=== PATIENT | female | born 1950 | race Caucasian/White ===

== ENCOUNTER 2021-06-19 10:03 | Inpatient (IN) | payer MEDICARE, OTHER ==
[~2021-06-19] VITALS: Ht 175.3 cm; Wt 86.5 kg
--- NOTE | 2021-06-19 10:41 | ED Cardiac General ---
History of Present Illness General Chief Complaint: Cough/Cold/Flu Symptoms Stated Complaint: COUGH/CONGESTION Nursing Triage Note: PT AMB TO [facility] 9 WITH DAUGHTER WITH COMPLAINT OF INTERMITTENT COUGH SINCE JANUARY. STATES SHE DOES HAVE NASAL DRAINAGE ALSO. Source: patient Exam Limitations: no limitations (WEN ROBLES MD) History of Present Illness Date Seen by Provider: Jun 19, 2021 Time Seen by Provider: 10:35 (WEN ROBLES MD) Initial Comments Mrs. Pradhan is a 70yo female with no significant cardiac PMH that presents to ED today due to Cough and congestion of a couple months. She states that in January she developed a deep productive cough and persisted 5-6 weeks until mid March. Since March the cough has been coming and going. Yesterday afternoon she states the cough became the worst it has been and her nose has been running profusely. It is worse at night. Today when she came into ED she had ECG that showed her to be in Afib. She denies any cardiac history. She does take an 81mg baby asprin. She states she has been feeling a fluttering sensation in her chest for a few months but confidently denies any crushing, heaviness, or pain sensation in her chest. Other than this she has had nausea with no vomiting and SOB at time. Has chronic issues with constipation. She has tried taking benadryl but this has not helped. Denies any fever. She only drinks 2-3 drinks/week. Does not smoke. (JENN SAWANT MED STUDENT) Allergies and Home Medications Allergies Coded Allergies: morphine (Verified Allergy, Unknown, 06/19/21) Patient Home Medication List Home Medication List Reviewed: Yes (WEN ROBLES MD) Aspirin (Aspirin) 81 Mg Tab.chew, 81 MG PO DAILY, (Reported) Entered as Reported by: CORDELIA ELLIS on 06/19/211444 Last Action: Held Calcium Carbonate/Vitamin D3 (Calcium + Vitamin D Tablet) 1 Each Tablet, 1 EACH PO BID, (Reported) Entered as Reported by: CORDELIA ELLIS on 06/19/211443 Last Action: Held Gabapentin (Gabapentin) 600 Mg Tablet, 600 MG PO HS, (Reported) Entered as Reported by: CORDELIA ELLIS on 06/19/211443 Last Action: Continued Pantoprazole Sodium (Pantoprazole Sodium) 40 Mg Tablet., 40 MG PO DAILY, (Reported) Entered as Reported by: CORDELIA ELLIS on 06/19/211443 Last Action: Continued Pramipexole Di-HCl (Pramipexole Dihydrochloride) 0.5 Mg Tablet, 0.5 MG PO HS, (Reported) Entered as Reported by: CORDELIA ELLIS on 06/19/211443 Last Action: Continued Review of Systems Review of Systems Constitutional: No chills, No fever EENTM: No Blurred Vision, No Double Vision Respiratory: Cough, Shortness of Air (worse than usual); Denies Wheezing Cardiovascular: Denies Chest Pain; Edema (ankles), Palpitations ("fluttering") Gastrointestinal: Denies Abdominal Pain; Constipated (chronic); Denies Diarrhea; Nausea; Denies Vomiting Genitourinary: Denies Hematuria; Other (no dysuria) Musculoskeletal: No joint pain, No joint swelling Skin: No lesions, No rash Psychiatric/Neurological: Denies Headache, Denies Numbness (JENN SAWANT MED STUDENT) Past Mcfiglu-Ccydfz-Qdexdx Hx Patient Social History Tobacco Use?: No Use of E-Cig and/or Vaping dev: No Substance use?: No Alcohol Use?: Yes Alcohol type: Beer, Hard Liquor Alcohol Frequency: Couple times a week Pt feels they are or have been: No (WEN ROBLES MD) Immunizations Up To Date Influenza Vaccine Up-to-Date: Yes; Up-to-Date First/Initial COVID19 Vaccinat: 2020 Second COVID19 Vaccination Baldo: 2020 (WEN ROBLES MD) Past Medical History Surgeries: Yes Appendectomy, Gallbladder, Joint Replacement (Right knee), Orthopedic (Back and neck surgery with hardware), Tonsillectomy Respiratory: Yes (Chronic cough) Neurological: Yes (Balance difficulty) Neuropathy (Peripheral neuropathy, not diabetic) : No Reproductive Disorders: No Genitourinary: No Gastrointestinal: Yes Gastroesophageal Reflux Musculoskeletal: Yes Arthritis, Fractures (Lumbar spine) HEENT: No Cancer: No Psychosocial: No Integumentary: No (WEN ROBLES MD) Physical Exam Vital Signs Vital Signs - First Documented 06/19/21 10:11 Pulse 151 Resp 26 B/P (MAP) 197/129 (151) Pulse Ox 96 O2 Delivery Room Air (JENN SAWANT MED STUDENT) Vital Signs Capillary Refill : Less Than 3 Seconds (WEN ROBLES MD) Height, Weight, BMI Height: '" Weight: lbs. oz. kg; 29.00 BMI Method: (WEN ROBLES MD) General Appearance: No Apparent Distress, WD/WN HEENT: PERRL/EOMI, Pharynx Normal, Moist Mucous Membranes Respiratory: Chest Non Tender, Lungs Clear, No Respiratory Distress, Decreased Breath Sounds (mildly decreased, no crackles noted) Cardiovascular: No Murmur, Normal Peripheral Pulses, Other (irregular rythym) Gastrointestinal: Normal Bowel Sounds, Non Tender, Soft Extremity: Non Tender, No Calf Tenderness, Pedal Edema (mild) Neurologic/Psychiatric: Alert, Oriented x3, No Motor/Sensory Deficits Skin: Normal Color, Warm/Dry (JENN SAWANT [employer] STUDENT) Progress/Results/Core Measures Results/Orders Lab Results Laboratory Tests Test 06/19/21 10:33 Range/Units White Blood Count 9.1 4.3-11.0 10^3/uL Red Blood Count 4.53 3.80-5.11 10^6/uL Hemoglobin 13.9 11.5-16.0 g/dL Hematocrit 43 35-52 % Mean Corpuscular Volume 94 80-99 fL Mean Corpuscular Hemoglobin 31 25-34 pg Mean Corpuscular Hemoglobin Concent 33 32-36 g/dL Red Cell Distribution Width 13.2 10.0-14.5 % Platelet Count 244 130-400 10^3/uL Mean Platelet Volume 9.6 9.0-12.2 fL Immature Granulocyte % (Auto) 0 % Neutrophils (%) (Auto) 81 H 42-75 % Lymphocytes (%) (Auto) 8 L 12-44 % Monocytes (%) (Auto) 6 0-12 % Eosinophils (%) (Auto) 5 0-10 % Basophils (%) (Auto) 0 0-10 % Neutrophils # (Auto) 7.4 1.8-7.8 10^3/uL Lymphocytes # (Auto) 0.7 L 1.0-4.0 10^3/uL Monocytes # (Auto) 0.5 0.0-1.0 10^3/uL Eosinophils # (Auto) 0.4 H 0.0-0.3 10^3/uL Basophils # (Auto) 0.0 0.0-0.1 10^3/uL Immature Granulocyte # (Auto) 0.0 0.0-0.1 10^3/uL Sodium Level 141 135-145 MMOL/L Potassium Level 4.2 3.6-5.0 MMOL/L Chloride Level 105 98-107 MMOL/L Carbon Dioxide Level 18 L 21-32 MMOL/L Anion Gap 18 H 5-14 MMOL/L Glucose Level 104 70-105 MG/DL Calcium Level 9.6 8.5-10.1 MG/DL Corrected Calcium 9.4 8.5-10.1 MG/DL Total Bilirubin 0.7 0.1-1.0 MG/DL Alkaline Phosphatase 127 40-136 U/L Total Protein 7.6 6.4-8.2 GM/DL Albumin 4.2 3.2-4.5 GM/DL (JENN SAWANT MED STUDENT) Medications Given in ED Current Medications Medications Dose Ordered Sig/Marguerite Route Start Time Stop Time Status Last Admin Dose Admin Diltiazem HCl 10 mg ONCE ONCE IVP 06/19/21 10:45 06/19/21 10:46 DC 06/19/21 10:42 10 MG (JENN SAWANT MED STUDENT) Vital Signs/I&O 06/19/21 10:11 Pulse 151 Resp 26 B/P (MAP) 197/129 (151) Pulse Ox 96 O2 Delivery Room Air (JENN SAWANT MED STUDENT) Blood Pressure Mean: 151 Progress Progress Note : Progress Note Patient was seen and evaluated by me personally along with MS 4. She was found to have atrial fibrillation with RVR. This is a new diagnosis for her. She has been experiencing palpitations for at least the past 2 months. She also describes a cough productive of clear or sometimes white foamy sputum intermittently for about 5 months. She does not necessarily correlate the palpitations with the cough. It is possible that her atrial fibrillation has been causing some degree of heart failure resulting in cough. Patient also reported allergy symptoms that were relatively intense over the past couple of days including sneezing and runny nose. She has had no fever or chills. She was started on a Cardizem bolus and drip for control of atrial fibrillation. She is maintaining a heart rate in the 80s well controlled on the drip during my exam. We did have a conversation about her alcohol consumption. She reports drinking 2-3 beers or a couple of mixed drinks 3 to 4 days/week. She reports never experiencing withdrawal symptoms even when she has abstained for several days, and she is not concerned about withdrawal. She appears to have multiple issues that could be related to her alcohol consumption including frequent falls, neuropathy, GERD, new atrial fibrillation and chronic cough. Patient is agreeable to admission. We discussed CODE STATUS. She is agreeable to chest compressions and defibrillation but does not want to be intubated under any circ umstance. Patient has also been suffering from significant insomnia which she attributes to the cough. (WEN ROBLES MD) Initial ECG Impression Date: Jun 19, 2021 Initial ECG Impression Time: 10:23 Initial ECG Rate: 139 Initial ECG Rhythm: A Fib/Flutter Initial ECG Impression: Atrial Fibrillation w/RVR Comment Atrial fibrillation with RVR. Subtle ST depression. No ST elevation. No abnormal intervals or axis deviation. (WEN ROBLES MD) Diagnostic Imaging Diagonstic Imaging: Xray Plain Films/CT/US/NM/MRI: chest Comments Chest x-ray viewed by me and report reviewed. See report below: NAME: JENNIFER PRADHAN MED REC#: [id number] PT STATUS: REG ER : 1950 PHYSICIAN: WEN ROBLES MD ADMIT DATE: 06/19/21/ER Draft Date of Exam:06/19/21 CHEST 1 VIEW, AP/PA ONLY INDICATION: Cough and dyspnea. COMPARISON: None. DISCUSSION: Single portable upright view of the chest was obtained. Elevated right hemidiaphragm. Cardiomegaly is noted. No failure. No consolidation, pleural fluid, or pneumothorax. No osseous abnormality. IMPRESSION: Cardiomegaly without failure. Dictated on workstation # [id number] Dict: 06/19/21 1149 Trans: 06/19/21 1154 [id number] Interpreted by: REAL LOPEZ MD (WEN ROBLES MD) Departure Communication (Admissions) Time/Spoke to Admitting Phy: 11:53 Dr. Vora Time/Spoke to Consulting Phy: 11:50 Dr. Guerra (WEN ROBLES MD) Impression Primary Impression: Atrial fibrillation with RVR Additional Impression: Chronic cough Disposition: ADMITTED INPATIENT Condition: Stable Admissions Decision to Admit Reason: Admit from ER (General) Decision to Admit/Date: Jun 19, 2021 Time/Decision to Admit Time: 11:50 (WEN ROBLES MD) Departure-Patient Inst. Referrals: NO,LOCAL PHYSICIAN (PCP/Family) Primary Care Physician Medical Student Attestation and Attending Note: I have personally interviewed and examined this patient along with Jenn Sawant, MS 4. I have reviewed student documentation including history, physical, and assessments. I agree with the documentation except where otherwise noted. Exam: General: Alert, oriented, anxious but not in distress, well developed HEENT: Normocephalic and atraumatic, no JVD Heart: Irregularly irregular without murmur Lungs: Subtle scattered crackles bilaterally with normal effort Abdomen: Soft, nontender, nondistended, normal bowel sounds Extremities: No significant edema, arthritic disfigurement of the fingers and toes Neuropsych: Alert, oriented, no focal deficits Skin: Warm and dry without rashes (WEN ROBLES MD) WEN ROBLES MD Jun 19, 2021 10:41 JENN SAWANT MED STUDENT Jun 19, 2021 10:59
[2021-06-19 10:43] LABS: BASOPHILS % (AUTO) 0 % (0-10); EOSINOPHILS # (AUTO) 0.4 10^3/uL (0.0-0.3); EOSINOPHILS % (AUTO) 5 % (0-10); HEMATOCRIT 43 % (35-52); HEMOGLOBIN 13.9 g/dL (11.5-16.0); LYMPHOCYTES # (AUTO) 0.7 10^3/uL (1.0-4.0); LYMPHOCYTES % (AUTO) 8 % (12-44); MEAN CORPUSCULAR HEMOGLOBIN 31 pg (25-34); MEAN CORPUSCULAR HGB CONC 33 g/dL (32-36); MEAN CORPUSCULAR VOLUME 94 fL (80-99); MEAN PLATELET VOLUME 9.6 fL (9.0-12.2); MONOCYTES # (AUTO) 0.5 10^3/uL (0.0-1.0); MONOCYTES % (AUTO) 6 % (0-12); NEUTROPHILS # (AUTO) 7.4 10^3/uL (1.8-7.8); NEUTROPHILS % (AUTO) 81 % (42-75); PLATELET COUNT 244 10^3/uL (130-400); WHITE BLOOD COUNT 9.1 10^3/uL (4.3-11.0)
[2021-06-19] MEDS ORDERED: dilTIAZem DRIP PRE-MIX 125 ML IV SCH (10:45)
[2021-06-19 10:53] LABS: ALBUMIN 4.2 GM/DL (3.2-4.5); POTASSIUM 4.2 MMOL/L (3.6-5.0)
[2021-06-19 10:54] LABS: CALCIUM 9.6 MG/DL (8.5-10.1)
[2021-06-19 10:56] LABS: TOTAL PROTEIN 7.6 GM/DL (6.4-8.2)
[2021-06-19 10:57] LABS: BILIRUBIN,TOTAL 0.7 MG/DL (0.1-1.0)
[2021-06-19 10:59] LABS: CREATININE SERUM 0.78 MG/DL (0.60-1.30)
[2021-06-19 11:07] LABS: EOSINOPHILS % (MANUAL) 2 %; LYMPHOCYTES % (MANUAL) 8 %; MONOCYTES % (MANUAL) 5 %; NEUTROPHILS % (MANUAL) 85 %; RBC MORPH NORMAL
[2021-06-19 11:23] LABS: TSH (THYROID ANALYZER) 1.54 UIU/ML (0.35-4.94)
--- NOTE | 2021-06-19 11:54 | Diagnostic Imaging Report ---
INDICATION: Cough and dyspnea. COMPARISON: None. DISCUSSION: Single portable upright view of the chest was obtained. Elevated right hemidiaphragm. Cardiomegaly is noted. No failure. No consolidation, pleural fluid, or pneumothorax. No osseous abnormality. IMPRESSION: Cardiomegaly without failure. Dictated by: Dictated on workstation # [id number]
[2021-06-19] MEDS ORDERED: APIXABAN 5 MG (ELIQUIS) TABLET PO ONE (12:00)
[2021-06-19] MEDS ORDERED: HYDROmorphone 2 MG/ML VIAL (DILAUDID) IV ONE (13:00)
--- NOTE | 2021-06-19 13:26 | Tele-ICU Consult ---
History of Present Illness History of Present Illness Date Seen by Provider: Jun 19, 2021 Time Seen by Provider: 13:20 History of Present Illness 70 yo F came to ED with fluttering in chest, 5 Hx of cough. Found to be in a fib with RVR, started on IV Cardizem No c/o of SOB/CP, No previous cardiac PMH CXR shows increased HS but no CHF, TSH ok, BNP 117 Allergies and Home Medications Allergies Coded Allergies: morphine (Verified Allergy, Unknown, 06/19/21) Past Medical/Social/Family Hx Patient Social History Tobacco Use?: No Use of E-Cig and/or Vaping dev: No Substance use?: No Alcohol Use?: Yes Alcohol Frequency: Couple times a week Pt stated abuse/neglect: No Immunizations Up To Date Influenza Vaccine Up-to-Date: Yes; Up-to-Date First/Initial COVID19 Vaccinat: 2020 Second COVID19 Vaccination Baldo: 2020 Current Status Advance Directives: No Primary Language: [place] Citizen Preferred Spoken Language: [place] Citizen Focused Exam Height, Weight, BMI Height: '" Weight: lbs. oz. kg; 29.00 BMI Method: Exam Exam Patient acknowledged, consented, and participated in this virtual visit which was conducted using real time audio/video Vital Signs Date Time Temp Pulse Resp B/P (MAP) Pulse Ox O2 Delivery O2 Flow Rate FiO2 06/19/21 10:11 151 26 197/129 (151) 96 Room Air Height & Weight Height: '" Weight: lbs. oz. kg; 29.00 BMI Method: General Appearance: No Apparent Distress, WD/WN HEENT: PERRL/EOMI, Pharynx Normal, Moist Mucous Membranes Respiratory: Chest Non Tender, Lungs Clear, No Respiratory Distress, Decreased Breath Sounds (mildly decreased, no crackles noted) Cardiovascular: No Murmur, Normal Peripheral Pulses, Other (irregular rythym) Capillary Refill: Less Than 3 Seconds Extremity: Non Tender, No Calf Tenderness, Pedal Edema (mild) Neurologic/Psychiatric: Alert, Oriented x3, No Motor/Sensory Deficits Skin: Normal Color, Warm/Dry Results Lab Laboratory Tests 06/19/21 10:33 Assessment/Plan Assessment/Plan A fib with RVR, will continue with IV Cardizem until rate controlled, will get echocardiogram, has cardiomegaly on CXR Critical Care: Critically Ill Patient TAMANNA ERWIN MD Jun 19, 2021 13:26
[2021-06-19 13:35] VITALS: BP 141/90
[2021-06-19] MEDS ORDERED: CATHETER FLUSH 10 ML SYR IVP PRN (14:00)
[2021-06-19] MEDS ORDERED: PANT40TA52 PO (14:44)
[2021-06-19] MEDS ORDERED: PRAM0.5T9 PO (14:44)
[2021-06-19] MEDS ORDERED: CALC-140 PO (14:44)
[2021-06-19] MEDS ORDERED: GBPN600T PO (14:44)
[2021-06-19] MEDS ORDERED: ASPI-999 PO (14:45)
[2021-06-19] MEDS ORDERED: meTOproloL SUCCINATE 50 MG (TOPROL XL) TAB PO ONE (15:15)
--- NOTE | 2021-06-19 16:07 | Consultation-Cardiology ---
HPI-Cardiology Cardiology Consultation: Date of Consultation 06/19/21 Date of Admission 06/19/21 Attending Physician Juli Vora MD Admitting Physician No,Local Physician Consulting Physician REAL LANZA JR, MD HPI: Time Seen by a Provider: 16:02 Chief Complaint: Reason for consultation: Atrial fibrillation. I had the pleasure of seeing Adiel in the intensive care unit at [facility] in [place], [place] this afternoon. She has no significant cardiac risk factors. She has had multiple cervical spine surgeries in the past and because of some of the manipulation done in her neck, she tells me that she frequently has problems with choking when she eats or drinks. Then for about the past 5 months she has been having a dry cough. Mainly this would bother her at night. Every time she would lay down, she would cough. She got to the point that she was sleeping in a chair because this was the only way she could get comfortable without coughing. At times she would raise both whitish and pinkish sputum. She did not seek medical attention. Sometimes this would make her feel short of breath. She denies any chest discomfort. Then yesterday she was doing some things around the house and suddenly developed rhinorrhea. This eventually resolved. Then finally this morning she decided to come to the hospital for further evaluation. In the emergency room she was found to be in atrial fibrillation with a rapid ventricular rate and was started on intravenous diltiazem and her heart rates improved. She was then admitted to the intensive care unit and a cardiology consultation was requested. She states that she has had some palpitations but not all that often. She denies any chest discomfort. She has had minimal dyspnea on exertion. She denies lightheadedness, syncope, or ankle edema. Certain portions of this document may have been dictated utilizing voice recognition technology. Inherent to this technology, typographical and grammatical errors may exist. As much as I am diligent to identify and correct these mistakes, some errors may remain in the document. Review of Systems-Cardiology Review of Systems Other comments Review of 10 organ systems is as per the history of present illness, otherwise negative. [facility]R-Flwtis-Zajxgt Hx Patient Social History Have you traveled recently?: No Alcohol Use?: Yes Pt feels they are or have been: No Past Medical History PMH As described under Assessment. Family Medical History Family Medical History: She is adopted and does not know her family history. Allergies and Home Medications Allergies Coded Allergies: morphine (Verified Allergy, Unknown, 06/19/21) Patient Home Medication List Home Medication List Reviewed: Yes Aspirin (Aspirin) 81 Mg Tab.chew, 81 MG PO DAILY, (Reported) Entered as Reported by: CORDELIA ELLIS on 06/19/211444 Last Action: Reviewed Calcium Carbonate/Vitamin D3 (Calcium + Vitamin D Tablet) 1 Each Tablet, 1 EACH PO BID, (Reported) Entered as Reported by: CORDELIA ELLIS on 06/19/211443 Last Action: Reviewed Gabapentin (Gabapentin) 600 Mg Tablet, 600 MG PO HS, (Reported) Entered as Reported by: CORDELIA ELLIS on 06/19/211443 Last Action: Reviewed Pantoprazole Sodium (Pantoprazole Sodium) 40 Mg Tablet.dr, 40 MG PO DAILY, (Reported) Entered as Reported by: CORDELIA ELLIS on 06/19/211443 Last Action: Reviewed Pramipexole Di-HCl (Pramipexole Dihydrochloride) 0.5 Mg Tablet, 0.5 MG PO HS, (Reported) Entered as Reported by: CORDELIA ELLIS on 06/19/211443 Last Action: Reviewed Exam Vital Signs Vital Signs Date Time Temp Pulse Resp B/P (MAP) Pulse Ox O2 Delivery O2 Flow Rate FiO2 06/19/21 15:00 85 20 116/78 93 Room Air Physical Exam General: Alert. No acute distress. Well nourished and appears stated age. Eye: Extraocular movements are intact. Conjunctivae are clear. There are no xanthelasma. HENT: Normocephalic. Atraumatic. Carotid pulsations 2/2 without bruits. Neck: Jugular venous pressure does not appear elevated. No thyromegaly appreciated. Respiratory: Lungs are clear to auscultation. Respirations are non-labored. Breath sounds are equal. Symmetrical chest wall expansion. Cardiovascular: Normal rate. Irregular rhythm. No murmur. No gallop. Point of maximal impulse is not appear displaced. Good pulses equal in all extremities. No edema. Gastrointestinal: Soft. Normal bowel sounds. Skin: Skin turgor is normal. There is no pallor. Musculoskeletal: No kyphosis or scoliosis appreciated. Neurologic: Alert and oriented to person, place, time. Cranial nerves 3-12 appe ar grossly intact. The patient has good motor tone strength in the upper and lower extremities bilaterally. Psychiatric: Cooperative. Appropriate mood but anxious. Labs Laboratory Tests Test 06/19/21 10:33 06/19/21 10:43 Range/Units White Blood Count 9.1 4.3-11.0 10^3/uL Red Blood Count 4.53 3.80-5.11 10^6/uL Hemoglobin 13.9 11.5-16.0 g/dL Hematocrit 43 35-52 % Mean Corpuscular Volume 94 80-99 fL Mean Corpuscular Hemoglobin 31 25-34 pg Mean Corpuscular Hemoglobin Concent 33 32-36 g/dL Red Cell Distribution Width 13.2 10.0-14.5 % Platelet Count 244 130-400 10^3/uL Mean Platelet Volume 9.6 9.0-12.2 fL Immature Granulocyte % (Auto) 0 % Neutrophils (%) (Auto) 81 H 42-75 % Lymphocytes (%) (Auto) 8 L 12-44 % Monocytes (%) (Auto) 6 0-12 % Eosinophils (%) (Auto) 5 0-10 % Basophils (%) (Auto) 0 0-10 % Neutrophils # (Auto) 7.4 1.8-7.8 10^3/uL Lymphocytes # (Auto) 0.7 L 1.0-4.0 10^3/uL Monocytes # (Auto) 0.5 0.0-1.0 10^3/uL Eosinophils # (Auto) 0.4 H 0.0-0.3 10^3/uL Basophils # (Auto) 0.0 0.0-0.1 10^3/uL Immature Granulocyte # (Auto) 0.0 0.0-0.1 10^3/uL Neutrophils % (Manual) 85 % Lymphocytes % (Manual) 8 % Monocytes % (Manual) 5 % Eosinophils % (Manual) 2 % Blood Morphology Comment NORMAL Sodium Level 141 135-145 MMOL/L Potassium Level 4.2 3.6-5.0 MMOL/L Chloride Level 105 98-107 MMOL/L Carbon Dioxide Level 18 L 21-32 MMOL/L Anion Gap 18 H 5-14 MMOL/L Blood Urea Nitrogen 11 7-18 MG/DL Creatinine 0.78 0.60-1.30 MG/DL Estimat Glomerular Filtration Rate 81 BUN/Creatinine Ratio 14 Glucose Level 104 70-105 MG/DL Calcium Level 9.6 8.5-10.1 MG/DL Corrected Calcium 9.4 8.5-10.1 MG/DL Magnesium Level 2.0 1.6-2.4 MG/DL Total Bilirubin 0.7 0.1-1.0 MG/DL Aspartate Amino Transf (AST/SGOT) 30 5-34 U/L Alanine Aminotransferase (ALT/SGPT) 25 0-55 U/L Alkaline Phosphatase 127 40-136 U/L B-Type Natriuretic Peptide 117.1 H <100.0 PG/ML Total Protein 7.6 6.4-8.2 GM/DL Albumin 4.2 3.2-4.5 GM/DL TSH Elizabeth Testing 1.54 0.35-4.94 UIU/ML Serum Alcohol < 10 <10 MG/DL ECG Impression ECG Comment Electrocardiogram from the emergency room at 1023 this morning shows atrial fibrillation with a ventricular rate of 139 bpm with low voltage in the precordial leads, nonspecific intraventricular conduction delay, poor R wave progression and anterolateral ST depression. Diagnosis/Problems Diagnosis/Problems (1) Paroxysmal atrial fibrillation Assessment & Plan: She appears to have atrial fibrillation of unknown duration. Her heart rates have improved with intravenous diltiazem. I have started her on metoprolol succinate as well as apixaban. Her [id number] score is at least 2 for female sex and age over 65 but also possibly 3 for possibly newly diagnosed hypertension. We will attempt to wean off the diltiazem overnight. She will ultimately need an echocardiogram. If her heart rates improve overnight and she is ready for discharge tomorrow, we could consider an outpatient echocardiogram since tomorrow is Monday. (2) Abnormal electrocardiogram Assessment & Plan: Her electrocardiogram shows poor R wave progression and anterolateral ST depression. She will ultimately need an ischemic evaluation but this could also be arranged as an outpatient. (3) Hypertensive urgency Assessment & Plan: Her blood pressure was markedly elevated in the emergency room upon presentation. This has improved with the intravenous diltiazem. I would question whether or not she might have undiagnosed hypertension. We will be getting her on beta-parth for the atrial fibrillation which should help keep her blood pressure under control. (4) Chronic cough Status: Acute Assessment & Plan: Exact etiology unclear. Her chest x-ray did not show any overt pulmonary edema. Her BNP level was marginally elevated but this is in the setting of atrial fibrillation with a rapid ventricular rate that could cause the BNP to become elevated. I suspect she may be having some chronic, low-grade aspiration events. This may need to be evaluated with a swallow study. REAL LANZA JR, MD Jun 19, 2021 16:07
[2021-06-19] MEDS: BENZONATATE 100 MG (TESSALON) CAPSULE PO PRN (18:19)
[2021-06-19] MEDS: APIXABAN 5 MG (ELIQUIS) TABLET PO SCH (20:31)
[2021-06-19] MEDS ORDERED: PRAMIPEXOLE 0.5 MG TAB (MIRAPEX) PO SCH (21:00)
[2021-06-19] MEDS ORDERED: GABAPENTIN 600 MG (NEURONTIN) TAB PO SCH (21:00)
[2021-06-19] MEDS ORDERED: MELATONIN 3 MG TABLET PO SCH (22:25)
[2021-06-20] MEDS: BENZONATATE 100 MG (TESSALON) CAPSULE PO PRN (04:23)
[2021-06-20 04:42] LABS: BASOPHILS % (AUTO) 1 % (0-10); EOSINOPHILS # (AUTO) 0.1 10^3/uL (0.0-0.3); EOSINOPHILS % (AUTO) 1 % (0-10); HEMATOCRIT 39 % (35-52); HEMOGLOBIN 12.6 g/dL (11.5-16.0); LYMPHOCYTES # (AUTO) 0.8 10^3/uL (1.0-4.0); LYMPHOCYTES % (AUTO) 13 % (12-44); MEAN CORPUSCULAR HEMOGLOBIN 31 pg (25-34); MEAN CORPUSCULAR HGB CONC 32 g/dL (32-36); MEAN CORPUSCULAR VOLUME 96 fL (80-99); MEAN PLATELET VOLUME 9.6 fL (9.0-12.2); MONOCYTES # (AUTO) 0.6 10^3/uL (0.0-1.0); MONOCYTES % (AUTO) 10 % (0-12); NEUTROPHILS # (AUTO) 4.2 10^3/uL (1.8-7.8); NEUTROPHILS % (AUTO) 75 % (42-75); PLATELET COUNT 183 10^3/uL (130-400); WHITE BLOOD COUNT 5.6 10^3/uL (4.3-11.0)
[2021-06-20 04:57] LABS: ALBUMIN 3.6 GM/DL (3.2-4.5); POTASSIUM 4.2 MMOL/L (3.6-5.0)
[2021-06-20 04:58] LABS: CALCIUM 8.7 MG/DL (8.5-10.1)
[2021-06-20 04:59] LABS: TOTAL PROTEIN 6.4 GM/DL (6.4-8.2)
[2021-06-20 05:01] LABS: BILIRUBIN,TOTAL 0.6 MG/DL (0.1-1.0)
[2021-06-20 05:03] LABS: CREATININE SERUM 0.88 MG/DL (0.60-1.30); PHOSPHORUS 3.3 MG/DL (2.3-4.7)
[2021-06-20 05:06] LABS: MAGNESIUM 1.9 MG/DL (1.6-2.4)
[2021-06-20] MEDS ORDERED: POTASSIUM CL 10MEQ/50ML IVPB 50 ML IV SCH (06:00)
[2021-06-20] MEDS ORDERED: MAGNESIUM 1 GM/100 ML IVPB 100 ML IV SCH (06:00)
[2021-06-20] MEDS ORDERED: KCL 20 MEQ TAB (K-DUR) PO SCH (06:00)
[2021-06-20] MEDS ORDERED: PANTOPRAZOLE 40 MG (PROTONIX) TAB PO SCH (07:00)
[2021-06-20] MEDS: APIXABAN 5 MG (ELIQUIS) TABLET PO SCH (08:41)
[2021-06-20] MEDS ORDERED: meTOproloL SUCCINATE 50 MG (TOPROL XL) TAB PO SCH (09:00)
--- NOTE | 2021-06-20 10:19 | Cardiology Progress Note ---
Progress Note-Cardiology Events since last exam Date Seen by Provider: Jun 20, 2021 Time Seen by Provider: 10:16 Events since last exam I am following her due to atrial fibrillation. Overnight, her diltiazem infu edgar was discontinued and her heart rates remained below 100 bpm on oral metoprolol. She took a Tessalon Perle and her cough has almost completely resolved. She denies chest discomfort, dyspnea, palpitations, syncope, or ankle edema. She wants to know if she can go home. Certain portions of this document may have been dictated utilizing voice recognition technology. Inherent to this technology, typographical and grammatical errors may exist. As much as I am diligent to identify and correct these mistakes, some errors may remain in the document. Vitals Last set of Vitals Signs Vital Signs 06/20/21 06/20/21 07:43 09:00 Temp 36.6 Pulse 73 Resp 16 B/P (MAP) 95/66 Pulse Ox 94 O2 Delivery Room Air Labs Labs Laboratory Tests 06/19/21 10:33 06/20/21 04:14 Exam Vital Signs Vital Signs Date Time Temp Pulse Resp B/P (MAP) Pulse Ox O2 Delivery O2 Flow Rate FiO2 06/20/21 09:00 73 16 95/66 94 Room Air 06/20/21 07:43 36.6 Physical Exam General: Alert. No acute distress. Eye: No xanthelasma. HENT: Normocephalic. Neck: Jugular venous pressure does not appear elevated. Respiratory: Lungs are clear to auscultation. Respirations are non-labored. Breath sounds are equal. Symmetrical chest wall expansion. Cardiovascular: Normal rate. Irregular rhythm. No murmur. No gallop. No edema. Gastrointestinal: Soft. Normal bowel sounds. Skin: Warm. Dry. Neurologic: Alert and oriented to person, place, time. Cranial nerves 3-11 grossly intact. Psychiatric: Cooperative. Appropriate mood & affect. ELECTROCARDIOGRAM atrial fibrillation with a ventricular rate of 83 bpm with poor R wave progression. Labs Laboratory Tests Test 06/19/21 10:33 06/19/21 10:43 06/20/21 04:14 Range/Units White Blood Count 9.1 5.6 4.3-11.0 10^3/uL Red Blood Count 4.53 4.07 3.80-5.11 10^6/uL Hemoglobin 13.9 12.6 11.5-16.0 g/dL Hematocrit 43 39 35-52 % Mean Corpuscular Volume 94 96 80-99 fL Mean Corpuscular Hemoglobin 31 31 25-34 pg Mean Corpuscular Hemoglobin Concent 33 32 32-36 g/dL Red Cell Distribution Width 13.2 13.4 10.0-14.5 % Platelet Count 244 183 130-400 10^3/uL Mean Platelet Volume 9.6 9.6 9.0-12.2 fL Immature Granulocyte % (Auto) 0 0 % Neutrophils (%) (Auto) 81 H 75 42-75 % Lymphocytes (%) (Auto) 8 L 13 12-44 % Monocytes (%) (Auto) 6 10 0-12 % Eosinophils (%) (Auto) 5 1 0-10 % Basophils (%) (Auto) 0 1 0-10 % Neutrophils # (Auto) 7.4 4.2 1.8-7.8 10^3/uL Lymphocytes # (Auto) 0.7 L 0.8 L 1.0-4.0 10^3/uL Monocytes # (Auto) 0.5 0.6 0.0-1.0 10^3/uL Eosinophils # (Auto) 0.4 H 0.1 0.0-0.3 10^3/uL Basophils # (Auto) 0.0 0.0 0.0-0.1 10^3/uL Immature Granulocyte # (Auto) 0.0 0.0 0.0-0.1 10^3/uL Neutrophils % (Manual) 85 % Lymphocytes % (Manual) 8 % Monocytes % (Manual) 5 % Eosinophils % (Manual) 2 % Blood Morphology Comment NORMAL Sodium Level 141 139 135-145 MMOL/L Potassium Level 4.2 4.2 3.6-5.0 MMOL/L Chloride Level 105 105 98-107 MMOL/L Carbon Dioxide Level 18 L 22 21-32 MMOL/L Anion Gap 18 H 12 5-14 MMOL/L Blood Urea Nitrogen 11 12 7-18 MG/DL Creatinine 0.78 0.88 0.60-1.30 MG/DL Estimat Glomerular Filtration Rate 81 70 BUN/Creatinine Ratio 14 14 Glucose Level 104 105 70-105 MG/DL Calcium Level 9.6 8.7 8.5-10.1 MG/DL Corrected Calcium 9.4 9.0 8.5-10.1 MG/DL Magnesium Level 2.0 1.9 1.6-2.4 MG/DL Total Bilirubin 0.7 0.6 0.1-1.0 MG/DL Aspartate Amino Transf (AST/SGOT) 30 23 5-34 U/L Alanine Aminotransferase (ALT/SGPT) 25 19 0-55 U/L Alkaline Phosphatase 127 111 40-136 U/L B-Type Natriuretic Peptide 117.1 H <100.0 PG/ML Total Protein 7.6 6.4 6.4-8.2 GM/DL Albumin 4.2 3.6 3.2-4.5 GM/DL TSH [place] Testing 1.54 0.35-4.94 UIU/ML Serum Alcohol < 10 <10 MG/DL Phosphorus Level 3.3 2.3-4.7 MG/DL Diagnosis/Problems Diagnosis/Problems (1) Paroxysmal atrial fibrillation Assessment & Plan: She appears to have atrial fibrillation of unknown duration. Her heart rates have improved with intravenous diltiazem and then oral metoprolol and the intravenous diltiazem has been discontinued.. I have started her on apixaban for stroke prophylaxis. Her [id number] score is at least 2 for female sex and age over 65 but also possibly 3 for possibly newly diagnosed hypertension. I will plan on an echocardiogram this morning and she can probably be discharged later today. She will need to see me in the office in about 2 weeks. I anticipate performing cardioversion after she has been on oral anticoagulation for at least 1 month. (2) Hypertensive urgency Assessment & Plan: Her blood pressure was markedly elevated in the emergency room upon presentation. This improved with the intravenous diltiazem. I would question whether or not she might have undiagnosed hypertension. Her blood pressures are better this morning. (3) Abnormal electrocardiogram Assessment & Plan: Her electrocardiogram shows poor R wave progression and anterolateral ST depression. She will ultimately need an ischemic evaluation but this could also be arranged as an outpatient. (4) Chronic cough Status: Acute Assessment & Plan: Exact etiology unclear. Her chest x-ray did not show any overt pulmonary edema. Her BNP level was marginally elevated but this is in the setting of atrial fibrillation with a rapid ventricular rate that could cause the BNP to become elevated. I suspect she may be having some chronic, low-grade aspiration events. This may need to be evaluated with a swallow study. I ordered a bedside swallow but since this is the weekend, I am not sure this can be accomplished today. REAL LANZA JR, MD Jun 20, 2021 10:19
[2021-06-20 10:37] LABS: CHOLESTEROL 152 MG/DL (< 200); HDL CHOLESTEROL 53 MG/DL (40-60); TRIGLYCERIDES 58 MG/DL (<150); VLDL CHOLESTEROL 12 MG/DL (5-40)
[2021-06-20] MEDS ORDERED: METO50TA7 PO (11:10)
[2021-06-20] MEDS ORDERED: APIX5TAB PO (11:11)
--- NOTE | 2021-06-20 20:29 | Discharge Summary ---
Discharge Summary Hospital Course Problems/Dx: (1) Paroxysmal atrial fibrillation (2) Hypertensive urgency (3) Abnormal electrocardiogram (4) Chronic cough Status: Acute Hospital Course Date of Admission: Jun 19, 2021 at 12:20 Admission Diagnosis : AFib with RVR Family Physician/Provider: Melissa Farris Physician Date of Discharge: 06/20/21 Discharge Diagnosis: AFib with RVR Hospital Course: Eda Shook is a 70 year old female who was admitted with new onset AFib with RVR. She was started on IV Cardizem and Eliquis. Cardiology was consulted and assisted with her care. She was transitioned to oral Metoprolol. She was given an Eliquis card to help with her first month's supply. Her echocardiogram was unremarkable. She was discharged home in stable condition. Labs and Pending Lab Test: Laboratory Tests 06/20/21 04:14: White Blood Count 5.6, Red Blood Count 4.07, Hemoglobin 12.6, Hematocrit 39, Mean Corpuscular Volume 96, Mean Corpuscular Hemoglobin 31, Mean Corpuscular Hemoglobin Concent 32, Red Cell Distribution Width 13.4, Platelet Count 183, Mean Platelet Volume 9.6, Immature Granulocyte % (Auto) 0, Neutrophils (%) (Auto) 75, Lymphocytes (%) (Auto) 13, Monocytes (%) (Auto) 10, Eosinophils (%) (Auto) 1, Basophils (%) (Auto) 1, Neutrophils # (Auto) 4.2, Lymphocytes # (Auto) 0.8L, Monocytes # (Auto) 0.6, Eosinophils # (Auto) 0.1, Basophils # (Auto) 0.0, Immature Granulocyte # (Auto) 0.0, Sodium Level 139, Potassium Level 4.2, Chloride Level 105, Carbon Dioxide Level 22, Anion Gap 12, Blood Urea Nitrogen 12, Creatinine 0.88, Estimat Glomerular Filtration Rate 70, BUN/Creatinine Ratio 14, Glucose Level 105, Calcium Level 8.7, Corrected Calcium 9.0, Phosphorus Level 3.3, Magnesium Level 1.9, Total Bilirubin 0.6, Aspartate Amino Transf (AST/SGOT) 23, Alanine Aminotransferase (ALT/SGPT) 19, Alkaline Phosphatase 111, Total Protein 6.4, Albumin 3.6, Triglycerides Level 58, Cholesterol Level 152, LDL Cholesterol Direct 93, VLDL Cholesterol 12, HDL Cholesterol 53 Home Meds Active Eliquis (Apixaban) 5 Mg Tablet 5 Mg PO BID 30 Days Metoprolol Succinate 50 Mg Tab.er.24h 50 Mg PO DAILY 30 Days Reported Aspirin 81 Mg Tab.chew 81 Mg PO DAILY Calcium + Vitamin D Tablet (Calcium Carbonate/Vitamin D3) 1 Each Tablet 1 Each PO BID Pantoprazole Sodium 40 Mg Tablet.dr 40 Mg PO DAILY Gabapentin 600 Mg Tablet 600 Mg PO HS Pramipexole Dihydrochloride (Pramipexole Di-HCl) 0.5 Mg Tablet 0.5 Mg PO HS Assessment/Pt Instructions See instructions Discharge Planning: <30 minutes discharge planning Discharge Instructions Discharge Diet: Low Sodium Diet Activity as Tolerated: Yes Consultations Cardiology Discharge Physical Examination Vital Signs Vital Signs Date Time Temp Pulse Resp B/P (MAP) Pulse Ox O2 Delivery O2 Flow Rate FiO2 06/20/21 13:05 75 11 156/91 93 Room Air 06/20/21 12:11 36.5 General Appearance: No Apparent Distress, WD/WN HEENT: PERRL/EOMI, Pharynx Normal Respiratory: Lungs Clear, No Respiratory Distress Cardiovascular: No Murmur, Irregularly Irregular Gastrointestinal: Normal Bowel Sounds, Soft Extremity: Normal Inspection, No Pedal Edema Skin: Normal Color, Warm/Dry Neurologic/Psychiatric: Alert, Normal Mood/Affect Allergies: Coded Allergies: morphine (Verified Allergy, Unknown, 06/19/21) Discharge Summary Date of Admission Jun 19, 2021 at 12:20 Date of Discharge Jun 20, 2021 at 12:30 Discharge Date: Jun 20, 2021 Discharge Time: 12:30 Admission Diagnosis AFib with RVR Consults/Procedures Consulations Cardiology Discharge Diagnosis (1) Atrial fibrillation with RVR Status: Acute (2) Hypertensive urgency (3) Abnormal electrocardiogram (4) Chronic cough Status: Acute PASHA JO MD Jun 20, 2021 20:27
== END 2021-06-20 12:30 | disposition home or self-care (01) | DRG 310 ==
LOC: ER 10:07 → ICU 12:20
PROVIDERS: ADMIT Internal Medicine; ATTEND Internal Medicine
PROC: 8E0ZXY6 Isolation (ICD-10-PCS; principal; 2021-06-19)
DX: I48.0 Paroxysmal atrial fibrillation (principal); I16.0 Hypertensive urgency; R94.31 Abnormal electrocardiogram [ECG] [EKG]; R05.3 Chronic cough; G62.9 Polyneuropathy, unspecified; K21.9 Gastro-esophageal reflux disease without esophagitis; Z88.5 Allergy status to narcotic agent; Z79.82 Long term (current) use of aspirin; Z79.899 Other long term (current) drug therapy
CPT/HCPCS: 36415; 71045; 80053; 80061; 80320; 83735; 83880; 84100; 84443; 85007; 85025; 85027; 93005; 93306

== ENCOUNTER → 2021-07-08 | Outpatient (CLI) | payer MEDICARE, OTHER ==
[~2021-07-08] MED LIST: APIX5TAB PO; ASPI-999 PO; CALC-140 PO; CATHETER FLUSH 10 ML SYR IVP PRN; GBPN600T PO; METO50TA7 PO; PANT40TA52 PO; PRAM0.5T9 PO; REGADENOSON 0.4 MG/5 ML SYR (LEXISCAN) IV ONE
[2021-07-08 13:00] VITALS: BP 153/91
--- NOTE | 2021-07-09 08:47 | NUCLEAR STRESS TEST ---
REGADENOSON NUCLEAR STRESS Date of procedure: 07/08/2021. Primary care provider: No local physician Admitting physician: Phan Guerra Jr., MD. INDICATION: Abnormal electrocardiogram. BASELINE ELECTROCARDIOGRAM: Atrial fibrillation with a ventricular rate of 85 bpm with low voltage in the precordial leads, possible old anteroseptal myocardial infarction and nonspecific ST-T wave changes. STRESS TEST PROCEDURE: The patient was administered 0.4 mg of intravenous Regadenoson. The resting heart rate was 85 bpm and the peak heart rate was 135 bpm. The resting blood pressure was 153/91 mmHg and the minimum blood pressure was 149/99 mmHg. This represents a normal heart rate and a normal blood pressure response to Regadenoson with resting hypertension. The test was stopped due to the protocol. There was no chest discomfort during the test. The patient was in atrial fibrillation with rare isolated premature ventricular complexes versus aberrancy throughout the test. There were no significant stress induced electrocardiogram changes. NUCLEAR PROCEDURE: The patient was administered 9.1 mCi of intravenous te chnetium 99m Tetrofosmin at rest for the rest images. The patient was subsequently administered 29.2 mCi of intravenous technetium 99m Tetrofosmin at peak stress for the stress images. Following an appropriate wait after each injection, imaging was obtained. The images were subsequently processed and reformatted in the usual views. Gated imaging was obtained. The image quality was adequate with a mild degree of gastrointestinal attenuation artifact. CT attenuation correction was used as a adjunct to standard imaging. Both the corrected and uncorrected images were reviewed for interpretation. NUCLEAR RESULTS: There was normal myocardial perfusion in all segments without evidence of infarction or ischemia. There was normal left ventricular chamber size with an end-diastolic volume of 78 mL and an end-systolic volume of 19 mL. There was no evidence of transient ischemic dilatation. The TID ratio was 1.04. There was normal wall motion in all segments with a calculated ejection fraction of 75%. IMPRESSION: 1. Normal heart rate and blood pressure response to regadenoson with resting hypertension. 2. There was no chest discomfort or electrocardiogram changes during the test. 3. The patient was in atrial fibrillation with rare isolated premature ventricu lar complexes versus aberrancy throughout the test. 4. There was normal myocardial perfusion in all segments without evidence of infarction or ischemia. 5. There was normal wall motion in all segments with a calculated ejection fraction of 75%. Certain portions of this document may have been dictated utilizing voice recognition technology. Inherent to this technology, typographical and grammatical errors may exist. As much as I am diligent to identify and correct these mistakes, some errors may remain in the document. PHAN GUERRA JR, MD Jul 09, 2021 08:47
== END ==
LOC: CARD 11:45
PROVIDERS: ATTEND Internal Medicine Cardiovascular Disease
DX: R94.31 Abnormal electrocardiogram [ECG] [EKG] (principal)
CPT/HCPCS: 78452; 93017; A9502

== ENCOUNTER 2021-08-12 08:09 | Day surgery (SDC) | payer MEDICARE, OTHER ==
[~2021-08-12] VITALS: Ht 172.7 cm; Wt 89.4 kg
[~2021-08-12 08:09] MED LIST changes: -CATHETER FLUSH 10 ML SYR IVP PRN; -REGADENOSON 0.4 MG/5 ML SYR (LEXISCAN) IV ONE
[2021-08-12] MEDS ORDERED: CATHETER FLUSH 10 ML SYR IV PRN (08:30)
[2021-08-12] MEDS ORDERED: NS IV 1000 ML 1,000 ML IV ONE (08:30)
[2021-08-12] MEDS ORDERED: proPOfol 200 MG/20 ML (DIPRIVAN) VIAL IV ONE (08:55)
[2021-08-12 09:05] LABS: CALCIUM 9.8 MG/DL (8.5-10.1)
[2021-08-12] MEDS ORDERED: METO50TA7 PO (09:06)
[2021-08-12] MEDS ORDERED: APIX5TAB PO (09:06)
[2021-08-12] MEDS ORDERED: ACET-2267 PO (09:07)
[2021-08-12 09:10] LABS: CREATININE SERUM 0.82 MG/DL (0.60-1.30)
[2021-08-12 09:15] VITALS: BP 120/89
[2021-08-12 09:21] VITALS: BP 104/79
[2021-08-12 09:25] VITALS: BP 94/70
--- NOTE | 2021-08-12 09:27 | Cardiac Procedure Note ---
Cardiology Procedures Date of Procedure 08/12/21 DIRECT-CURRENT CARDIOVERSION INDICATION: Persistent atrial fibrillation. PROCEDURE: After informed consent and in the fasting state, deep sedation was provided by the anesthesia department. I subsequently performed direct-current cardioversion with synchronized biphasic shocks in a stepwise fashion starting with 50 J and then 100 J. On the second shock, the patient converted from atrial fibrillation to sinus rhythm. IMPRESSION: 1. Status post successful direct-current cardioversion utilizing synchronized, biphasic shocks with a final energy level of 100 J with conversion of atrial fibrillation to sinus rhythm. Certain portions of this document may have been dictated utilizing voice recognition technology. Inherent to this technology, typographical and grammatical errors may exist. As much as I am diligent to identify and correct these mistakes, some errors may remain in the document. REAL LANZA JR, MD August 12, 2021 09:27
[2021-08-12 09:30] VITALS: BP 100/65
[2021-08-12 09:45] VITALS: BP 125/75
[2021-08-12 10:00] VITALS: BP 106/74
== END 2021-08-12 10:18 | disposition home or self-care (01) ==
LOC: CATH 08:09
PROVIDERS: ATTEND Internal Medicine Cardiovascular Disease
DX: I48.19 Other persistent atrial fibrillation (principal); I10 Essential (primary) hypertension; G62.9 Polyneuropathy, unspecified; Z87.19 Personal history of other diseases of the digestive system; E66.9 Obesity, unspecified; Z68.30 Body mass index [BMI] 30.0-30.9, adult; Z79.01 Long term (current) use of anticoagulants; Z79.899 Other long term (current) drug therapy
CPT/HCPCS: 36415; 80048; 92960; 93005

== ENCOUNTER 2021-12-30 09:04 | Day surgery (SDC) | payer MEDICARE, OTHER ==
[~2021-12-30] VITALS: Ht 172.7 cm; Wt 89.8 kg
[2021-12-30] VITALS (7 sets, daily range): BP systolic 103–131; BP diastolic 58–90
[~2021-12-30 09:04] MED LIST changes: +ACET-2267 PO
[2021-12-30] MEDS ORDERED: NS IV 1000 ML 1,000 ML ONE (09:10)
[2021-12-30] MEDS ORDERED: CATHETER FLUSH 10 ML SYR IV PRN (09:15)
[2021-12-30] MEDS ORDERED: NS IV 1000 ML 1,000 ML IV ONE (09:15)
[2021-12-30] MEDS ORDERED: OXYC5TAB PO (09:49)
[2021-12-30] MEDS ORDERED: FLEC100T PO (09:49)
[2021-12-30] MEDS ORDERED: SERT-413 PO (09:49)
[2021-12-30] MEDS ORDERED: METH-732 PO (09:49)
[2021-12-30] MEDS ORDERED: ATOR40TA70 PO (09:49)
[2021-12-30] MEDS ORDERED: proPOfol 200 MG/20 ML (DIPRIVAN) VIAL IV ONE ×2 (09:56→10:23)
--- NOTE | 2021-12-30 10:17 | Cardiac Procedure Note-[facility] ---
Cardiology Procedures Date of Procedure 12/30/21 DIRECT-CURRENT CARDIOVERSION INDICATION: Persistent atrial fibrillation. PROCEDURE: After informed consent and in the fasting state, deep sedation was provided by the anesthesia department. I subsequently performed direct-current cardioversion with synchronized biphasic shocks in a stepwise fashion starting with 100 J and then 150 J. With the second shock, the patient converted from atrial fibrillation to sinus bradycardia. IMPRESSION: 1. Status post successful direct-current cardioversion with a final biphasic energy level of 150 J with conversion of atrial fibrillation to sinus bradycardia. Certain portions of this document may have been dictated utilizing voice recog nition technology. Inherent to this technology, typographical and grammatical errors may exist. As much as I am diligent to identify and correct these mistakes, some errors may remain in the document. REAL LANZA JR, MD Dec 30, 2021 10:17
--- NOTE | 2021-12-30 14:25 | Anesthesia-General Post-Op ---
MAC Patient Condition Mental Status/LOC: Same as Preop Cardiovascular: Satisfactory Nausea/Vomiting: Absent Respiratory: Satisfactory Pain: Controlled Complications: Absent Post Op Complications Complications None Follow Up Care/Instructions Patient Instructions None needed. Anesthesiology Discharge Order Discharge Order Patient was doing well this morning after the procedure with no complaints, stable vital signs, no apparent adverse anesthesia problems. No complications reported per nursing. CRUZ FORDE DO Dec 30, 2021 14:25
== END 2021-12-30 11:43 | disposition home or self-care (01) ==
LOC: CATH 09:04
PROVIDERS: ATTEND Internal Medicine Cardiovascular Disease
DX: I48.19 Other persistent atrial fibrillation (principal); E78.2 Mixed hyperlipidemia; I10 Essential (primary) hypertension; I65.23 Occlusion and stenosis of bilateral carotid arteries; E66.9 Obesity, unspecified; Z68.30 Body mass index [BMI] 30.0-30.9, adult; Z79.01 Long term (current) use of anticoagulants; Z79.899 Other long term (current) drug therapy
CPT/HCPCS: 92960; 93005

== ENCOUNTER → 2022-10-26 | Outpatient (CLI) | payer MEDICARE, OTHER ==
[~2022-10-26] MED LIST changes: +ATOR40TA70 PO; +CATHETER FLUSH 10 ML SYR IVP PRN; +FLEC100T PO; +METH-732 PO; +OXYC5TAB PO; +REGADENOSON 0.4 MG/5 ML SYR (LEXISCAN) IV ONE; +SERT-413 PO
[2022-10-26 11:09] LABS: ALBUMIN 4.4 GM/DL (3.2-4.5); POTASSIUM 4.1 MMOL/L (3.6-5.0)
[2022-10-26 11:10] LABS: CALCIUM 9.4 MG/DL (8.5-10.1)
[2022-10-26 11:12] LABS: TOTAL PROTEIN 7.5 GM/DL (6.4-8.2)
[2022-10-26 11:14] LABS: BILIRUBIN,TOTAL 0.7 MG/DL (0.1-1.0)
[2022-10-26 11:15] LABS: CREATININE SERUM 0.83 MG/DL (0.60-1.30)
[2022-10-26 12:55] VITALS: BP 141/99
== END ==
LOC: CARD 10:00
PROVIDERS: ATTEND Internal Medicine Cardiovascular Disease
DX: I48.0 Paroxysmal atrial fibrillation (principal); I10 Essential (primary) hypertension; I25.10 Atherosclerotic heart disease of native coronary artery without angina pectoris; I65.23 Occlusion and stenosis of bilateral carotid arteries; E78.2 Mixed hyperlipidemia
CPT/HCPCS: 78452; 80053; 80061; 93017; A9502; C8929; 36415; 93306